=== PATIENT | male | born 1970 | race African-American/Black ===

== ENCOUNTER 2020-11-25 18:45 | Observation (INO) | payer MEDICAID ==
[~2020-11-25] VITALS: Ht 188 cm; Wt 67.8 kg
[~2020-11-25 18:45] MED LIST: METF500T17 PO
--- NOTE | 2020-11-25 18:50 | NUR ---
PT BIBA. PER EMS PT HAS N/V/ ABD PAIN X 5DAYS. EMS STATES BS IS 360. PT STATES PAIN IS 2/10 AT THIS TIME. PT RESTING IN RGLASGOW, MONITORING IN PLACE, NADN AT THIS TIME, DR. LEE AT BEDSIDE FOR EVAL, WCTM. REPORT GIVEN TO RANDALL TOBIN.
--- NOTE | 2020-11-25 18:56 | NUR ---
REPORT FROM JOSEPH ASSUMED CARE OF PT
[2020-11-25] MEDS ORDERED: ONDANSETRON 2MG/ML, 2ML IVPush ONE (19:00)
[2020-11-25] MEDS ORDERED: LOPERAMIDE 2 MG CAPSULE PO ONE (19:00)
[2020-11-25] MEDS ORDERED: MAALOX/HYOSCYAMINE/LIDOCAINE 45 ML BTL PO ONE (19:00)
[2020-11-25] MEDS ORDERED: SODIUM CHLORIDE 0.9% 1,000ML IVBOLUS ONE (19:00)
[2020-11-25] MEDS ORDERED: SODIUM CHLORIDE FLUSH 10ML SYR IVF ONE (19:00)
[2020-11-25] MEDS ORDERED: ONDANSETRON 2MG/ML, 2ML ONE (19:06)
[2020-11-25] MEDS ORDERED: LOPERAMIDE 2 MG CAPSULE ONE (19:06)
[2020-11-25] MEDS ORDERED: MAALOX/HYOSCYAMINE/LIDOCAINE 45 ML BTL ONE (19:06)
[2020-11-25 19:14] LABS: BASOPHILS % (AUTO) 0 % (0-1); EOSINOPHILS % (AUTO) 1 % (1-7); LYMPHOCYTES % (AUTO) 37 % (22-44); MD NO; MEAN CORPUSCULAR HEMOGLOBIN 30.9 pg (27.5-34.5); MEAN CORPUSCULAR HGB CONC 34.1 g/dL (33.2-36.2); MEAN PLATELET VOLUME 8.8 fL (7.4-10.4); MONOCYTES % (AUTO) 13 % (2-9); NEUTROPHILS % (AUTO) 49 % (42-75); PLATELET COUNT 299 x10^3/uL (130-400); RED BLOOD COUNT 5.06 x10^6/uL (4.38-5.82); RED CELL DISTRIBUTION WIDTH 12.9 % (9.4-14.8)
--- NOTE | 2020-11-25 19:15 | NUR ---
PIV PLLACED MEDICATED PER MAR
[2020-11-25 19:22] LABS: ALANINE AMINOTRANSFERASE 25 U/L (12-78); ALBUMIN 3.3 g/dL (3.4-5.0); ANION GAP 6 mmol/L (5-15); CALCIUM 9.6 mg/dL (8.5-10.1); CHLORIDE 99 mmol/L (98-107); CREATININE 1.95 mg/dL (0.7-1.3)
[2020-11-25 19:23] LABS: ACETONE, SERUM Small (20mg/dL) (Negative)
[2020-11-25 19:25] LABS: ALKALINE PHOSPHATASE 130 U/L (45-117); BILIRUBIN,TOTAL 0.4 mg/dL (0.2-1.0); TOTAL PROTEIN 9.1 g/dL (6.4-8.2)
[2020-11-25] MEDS ORDERED: LACTATED RINGERS 1,000 ML IV ONE (19:30)
--- NOTE | 2020-11-25 20:55 | NUR ---
REPORT TO ESTELA PT TO ROOM WITH ESTELA
[2020-11-25] MEDS: INSULIN LISPRO 100 UNITS/ML, PEN SQ-INSULIN SCH (22:20)
[2020-11-26] MEDS ORDERED: LABETALOL 5MG/ML, 20ML IVPush PRN
[2020-11-26] MEDS ORDERED: ONDANSETRON 2MG/ML, 2ML IVPush PRN
[2020-11-26] MEDS ORDERED: ACETAMINOPHEN 325 MG TABLET PO PRN
[2020-11-26] MEDS: LACTATED RINGERS 1,000 ML IV SCH ×2 (01:08→06:37)
[2020-11-26 02:17] VITALS: BP 135/85
[2020-11-26 05:36] LABS: ALBUMIN 2.7 g/dL (3.4-5.0); ANION GAP 4 mmol/L (5-15); CALCIUM 8.4 mg/dL (8.5-10.1); CHLORIDE 105 mmol/L (98-107)
[2020-11-26 05:41] LABS: ALANINE AMINOTRANSFERASE 19 U/L (12-78); ALKALINE PHOSPHATASE 94 U/L (45-117); BILIRUBIN,TOTAL 0.4 mg/dL (0.2-1.0); CREATININE 1.24 mg/dL (0.7-1.3); TOTAL PROTEIN 7.4 g/dL (6.4-8.2)
[2020-11-26 06:31] LABS: MICROSCOPIC INDICATED
[2020-11-26 06:42] VITALS: BP 104/65
[2020-11-26 06:52] LABS: CHLORIDE,URINE RANDOM 54 mmol/L; POTASSIUM,URINE RANDOM 33 mmol/L; SODIUM,URINE RANDOM 59 mmol/L
[2020-11-26] MEDS: INSULIN LISPRO 100 UNITS/ML, PEN SQ-INSULIN SCH (07:00)
[2020-11-26] MEDS ORDERED: CIPR500T4 PO (09:25)
== END 2020-11-26 11:38 | disposition home or self-care (01) ==
LOC: ED 19:04 → EDIP 19:49 → INTOOBSV 19:49 → 4NW 21:02
PROVIDERS: ADMIT Family Medicine; ATTEND Family Medicine
DX: N39.0 Urinary tract infection, site not specified (principal); Z20.822 Contact with and (suspected) exposure to COVID-19; N17.9 Acute kidney failure, unspecified; E86.0 Dehydration; R11.2 Nausea with vomiting, unspecified; E11.65 Type 2 diabetes mellitus with hyperglycemia; I10 Essential (primary) hypertension; E78.5 Hyperlipidemia, unspecified; F17.210 Nicotine dependence, cigarettes, uncomplicated; F15.10 Other stimulant abuse, uncomplicated; R19.7 Diarrhea, unspecified; Z59.0 Homelessness; Z79.899 Other long term (current) drug therapy
CPT/HCPCS: 36415; 71045; 80053; 81001; 82010; 82436; 82550; 82570; 82962; 83036; 83690; 84133; 84300; 85025; 87086; 87147; 96361; 96374; 99284; G0378; J1815; J2405; J7030; J7120; U0003; U0005